=== PATIENT | female | born 1990 | race Caucasian/White ===

== ENCOUNTER 2020-05-19 19:46 | Emergency (ER) | payer MEDICAID, OTHER ==
[~2020-05-19] VITALS: Ht 162.6 cm; Wt 91.0 kg
[2020-05-19 20:34] VITALS: BP 117/70
[2020-05-19] MEDS ORDERED: ACETAMINOPHEN 325MG TABLET PO ONE (22:00)
[2020-05-19] MEDS ORDERED: ACETAMINOPHEN WITH CODEINE 300/30MG TABLET PO ONE (22:45)
[2020-05-19] MEDS ORDERED: ONDANSETRON HCL 4MG/2ML INJ IM ONE (22:45)
[2020-05-19] MEDS ORDERED: DIPHENHYDRAMINE 50MG/ML VIAL IM ONE (22:45)
== END 2020-05-19 23:48 | disposition home or self-care (01) ==
LOC: ER 19:46
DX: O26.893 Other specified pregnancy related conditions, third trimester (principal); G43.909 Migraine, unspecified, not intractable, without status migrainosus; Z3A.30 30 weeks gestation of pregnancy
CPT/HCPCS: 96372; 99284; J1200; J2405